=== PATIENT | male | born 1990 | race Caucasian/White ===

== ENCOUNTER → 2017-11-19 12:00 | Emergency (ER) | payer SELFPAY ==
--- NOTE | 2017-11-19 15:30 | UC ---
UC General HPI - History of Current Complaint Stated Complaint: PHYSICAL Time Seen by Provider: 11/19/17 15:25 - Allergy/Home Medications Allergies/Adverse Reactions: Allergies Allergy/AdvReac Type Severity Reaction Status Date / Time No Known Allergies Allergy Verified 11/19/17 13:36 Home Medications: Home Medications NK [No Home Medications Reported] 11/19/17 [History Confirmed 11/19/17] Discharge - Discharge Plan Referrals: Nora Silveira MD [Primary Care Provider] -
== END | disposition home or self-care (01) ==
LOC: OHEAST 12:00
DX: Z00.00 Encounter for general adult medical examination without abnormal findings (principal)

== ENCOUNTER 2020-01-17 07:38 | Emergency (ER) | payer BC ==
[2020-01-17] MEDS ORDERED: Cyclobenzaprine TAB* 10 MG PO ONE (07:57)
[2020-01-17] MEDS ORDERED: Lidocaine PATCH 5%* 1 PATCH TRANSDERM ONE (07:57)
[2020-01-17] MEDS ORDERED: Ketorolac INJ* 30 MG/ML 1 ML VIAL IM ONE (07:57)
--- NOTE | 2020-01-17 08:09 | ED ---
Back Pain - HPI Summary HPI Summary: 29 year old male presents with back pain since yesterday. 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 He states he woke up with the pain. Denies any numbness or tingling. No weakness. No pain in legs. No loss of bowel or bladder. No saddle anesthesias. No fevers. Hasn't taking anything for his pain. States it was difficult to get out of bed today. He has never had this before. - History of Current Complaint Chief Complaint: EDBackInjuryPain Stated Complaint: BACK PAIN Time Seen by Provider: 01/17/20 07:43 Pain Intensity: 7 - Allergies/Home Medications Allergies/Adverse Reactions: Allergies Allergy/AdvReac Type Severity Reaction Status Date / Time No Known Allergies Allergy Verified 11/19/17 13:36 Home Medications: Home Medications Cyclobenzaprine TAB* [Flexeril 10 MG TAB*] 10 mg PO TID PRN #21 tab 01/17/20 [Rx ] Lidocaine PATCH 5%* [Lidoderm 5% Patch*] 1 patch TRANSDERM DAILY #5 patch [Rx] PMH/Surg Hx/FS Hx/Imm Hx Endocrine/Hematology History: Denies: Hx Anticoagulant Therapy Respiratory History: Denies: Hx Asthma Infectious Disease History: No Infectious Disease History: Denies: Traveled Outside the [place] in Last 30 Days - Family History Known Family History: Positive: Non-Contributory - Social History Alcohol Use: None Substance Use Type: Reports: None Smoking Status (MU): Never Smoked Tobacco Review of Systems Negative: Fever Negative: Chest Pain Negative: Shortness Of Breath Positive: Myalgia - back pain All Other Systems Reviewed And Are Negative: Yes Physical Exam Triage Information Reviewed: Yes Vital Signs On Initial Exam: Initial Vitals Temp Pulse Resp BP Pulse Ox 97.8 F 85 18 110/82 99 01/17/20 07:38 01/17/20 07:38 01/17/20 07:38 01/17/20 07:38 01/17/20 07:38 Vital Signs Reviewed: Yes Appearance: Positive: Well-Appearing Skin: Positive: Warm, Dry Head/Face: Positive: Normal Head/Face Inspection Eyes: Positive: Normal, Conjunctiva Clear ENT: Positive: Pharynx normal Respiratory/Lung Sounds: Positive: Clear to Auscultation, Breath Sounds Present Cardiovascular: Positive: Normal, RRR Musculoskeletal: Positive: Strength/ROM Intact - back, Other - tenderness on right side of lower back, neg SLR, sensation grossly intact, good pulses Neurological: Positive: Normal, Reflexes Intact - patella, Normal Gait Psychiatric: Positive: Normal Procedures - Sedation Patient Received Moderate/Deep Sedation with Procedure: No Diagnostics - Vital Signs Vital Signs Temp Pulse Resp BP Pulse Ox 01/17/20 07:56 85 132/83 100 01/17/20 07:55 82 97 01/17/20 07:38 97.8 F 85 18 110/82 99 - Laboratory Lab Statement: Any lab studies that have been ordered have been reviewed, and results considered in the medical decision making process. - Radiology back Radiology Interpretation Completed By: Radiologist Summary of Radiographic Findings: #. Degenerative spondylosis at L1-L2. Back Pain Course/Dx - Course Course Of Treatment: 29 year old male presents with back pain since yesterday. 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 He states he woke up with the pain. Denies any numbness or tingling. No weakness. No pain in legs. No loss of bowel or bladder. No saddle anesthesias. No fevers. Hasn't taking anything for his pain. States it was difficult to get out of bed today. He has never had this before. On exam tenderness over right lower back. Neurovascular intact. X- ray shows no fracture. Gave Flexeril Toradol with improvement. We'll discharge on Flexeril and lidoderm. told est care with primary. Patient understands agrees the plan. - Diagnoses Differential Diagnosis/HQI/PQRI: Positive: Fracture, Strain, Sprain Provider Diagnoses: Back pain Discharge ED - Sign-Out/Discharge Documenting (check all that apply): Patient Departure - Discharge Plan Condition: Good Disposition: HOME Prescriptions: Cyclobenzaprine TAB* [Flexeril 10 MG TAB*] 10 mg PO TID PRN #21 tab PRN Reason: Pain - Moderate Lidocaine PATCH 5%* [Lidoderm 5% Patch*] 1 patch TRANSDERM DAILY #5 patch Patient Education Materials: Back Pain (ED) Referrals: [facility] [place] [facility] [Outside] Additional Instructions: Take muscle relaxers three times a day Apply lidocaine patches to area for up to 12 hours in one 24 hour period Use ibuprofen or Tylenol for pain every 6 hours ice/heat area, move as much as possible Establish care with primary Return to ED if develop any new or worsening symptoms - Billing Disposition and Condition Condition: GOOD Disposition: Home - Attestation Statements Provider Attestation: I have seen the patient with the FANI and agree with the plan and documentation below except as noted: Benitez Grey MD
[2020-01-17 09:09] VITALS: BP 123/72
[2020-01-17] MEDS ORDERED: Lidocaine Patch REMOVE* 1 NOTE MISC SCH (21:00)
== END 2020-01-17 09:09 | disposition home or self-care (01) ==
LOC: ED 07:38
DX: M54.9 Dorsalgia, unspecified (principal); M47.816 Spondylosis without myelopathy or radiculopathy, lumbar region
CPT/HCPCS: 72110; 96372; 99282; A9270-GY; J1885